=== PATIENT | female | born 1960 ===

== ENCOUNTER 2017-09-28 01:44 | Outpatient (CLI) | payer SELFPAY ==
[2017-09-28 08:52] LABS: HEMOGLOBIN A1C 5.1 % (4.5-6.2)
[2017-09-28 09:06] LABS: CHOL/HDL RATIO 3.09 (0.00-4.99)
== END 2017-09-28 23:59 | disposition home or self-care (01) ==
LOC: HW HEART 01:44
DX: Z13.6 Encounter for screening for cardiovascular disorders (principal)
CPT/HCPCS: 36415